=== PATIENT | female | born 1940 | race Caucasian/White ===

== ENCOUNTER 2017-10-12 08:30 | Outpatient (CLI) | payer MEDICARE ==
--- NOTE | 2017-10-12 12:20 | CT ---
CT ABDOMEN AND PELVIS WITH IV CONTRAST: 10/12/2017 HISTORY: Chronic diarrhea with constipation. Abdominal pain and bloating for 2-3 years, and symptoms are gett ing worse. History of appendectomy and hysterectomy. COMPARISON: None available. FINDINGS: There is mild dependent bibasilar atelectasis. Vascular calcification in the abdominal aorta and in the iliac arteries. There is evidence of a hiatal hernia. Post-cholecystectomy changes are noted. The liver, spleen, pancreas, and right adrenal gland demonstrate a normal CT appearance. There is a 1.3 cm left adrenal nodule which cannot be further characterized on this post-contrast exa m. The uterus is not visualized likely related to patient's history of hysterectomy. The urinary bladder is normal in appearance. There is colonic diverticulosis. The cecum extends medially, and there is a small amount of retained fecal material seen throughout th e colon. No free fluid, fluid collection, or lymphadenopathy is seen in the abdomen or pelvis. Degenerative changes are seen in the spine. There are multiple small calcified injection granulomata within the gluteal regions bilaterally. IMPRESSION: 1. Left adrenal nodule which cannot be accurately characterized on this exam. CT scan of abdomen wit hout IV contrast is recommended for further evaluation. 2. Small hiatal hernia. 3. Colonic diverticulosis. 4. Post-surgical change related to hysterectomy and cholecystectomy. 5. Vascular calcifications. POS: [facility]
[2017-10-12] MEDS ORDERED: Iopamidol 370 76% 100 ML VIAL ONE (16:02)
== END 2017-10-12 08:31 | disposition home or self-care (01) ==
LOC: CT 08:30
PROVIDERS: ATTEND Internal Medicine
DX: R19.7 Diarrhea, unspecified (principal); K44.9 Diaphragmatic hernia without obstruction or gangrene; I70.90 Unspecified atherosclerosis; K57.30 Diverticulosis of large intestine without perforation or abscess without bleeding; Z90.710 Acquired absence of both cervix and uterus; Z90.49 Acquired absence of other specified parts of digestive tract
CPT/HCPCS: 74177; 82565